=== PATIENT | male | born 1940 | race Caucasian/White ===

== ENCOUNTER 2020-08-27 16:57 | Outpatient (CLI) | payer MEDICARE, OTHER, SELFPAY | END 2020-08-27 16:58 | disposition home or self-care (01) | LOC: ANHCOVIDVC 16:57 | PROVIDERS: PCP Internal Medicine | DX: Z23 Encounter for immunization (principal) | CPT/HCPCS: 0001A; 91300 ==

== ENCOUNTER 2020-09-17 16:55 | Outpatient (CLI) | payer MEDICARE, OTHER, SELFPAY | END 2020-09-17 16:56 | disposition home or self-care (01) | LOC: ANHCOVIDVC 16:55 | PROVIDERS: PCP Internal Medicine | DX: Z23 Encounter for immunization (principal) | CPT/HCPCS: 0002A; 91300 ==

== ENCOUNTER 2023-01-24 11:16 | Outpatient (NON) | payer MEDICARE, SELFPAY ==
[2023-01-24 11:54] LABS: IFOB Positive Control Positive; Immunochemical Fecal Occult Bl Positive (N)
== END 2023-01-24 11:17 | disposition home or self-care (01) ==
LOC: ANHLAB 11:16
PROVIDERS: PCP Internal Medicine; Visit Provider Internal Medicine
DX: D64.9 Anemia, unspecified (principal)
CPT/HCPCS: 82274

== ENCOUNTER 2024-10-28 12:01 | Emergency (ER) | payer MEDICARE, SELFPAY ==
--- NOTE | ~2024-10-28 | XR_ITS ---
XR foot LT min 3V Ordering provider: Brigette Delgado MD History: . PAIN, REDNESS SWELLING X 1 WEEK, NKI . Comparison: None. FINDINGS: BONES: No acute fracture or dislocation. JOINT SPACES: Narrowing of the proximal and distal interphalangeal joints. Narrowing of the first met atarsophalangeal joint. No tarsal coalition. SOFT TISSUES: Normal. IMPRESSION: No acute osseous abnormality left foot. Polyarticular osteoarthritic changes. Reviewed, dictated and finalized at location A.
--- OUTSIDE RECORDS SUMMARY | 2024-10-28 12:03 | XMS_ITS | Clinical Summary ---
Author Organization [facility] Work[facility] Address [address] 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 This disclosure is being madepursuant to the Care Everywhere program and may not contain all information available regarding this patient. Last updated 18.[facility] Allergies Active Allergy Reactions Criticality Noted Date Comments Morphine Unknown 04/09/2020 Medications * Be aware that medications may not be up to date on this document. Alwaysverify current medications with the patient. aspirin EC (ECOTRIN) 81 MG tablet Take 81 mg by mouth daily. Active naproxen sodium (ALEVE) 220 MG tablet Take 220 mg by mouth 2 times daily. Active vitamin E (TOCOPHERYL) 1000 UNIT capsule Take 1 Cap by mouth daily. Active OMEGA-3 FISH OIL PO Take 4000 mg by mouth daily. Active multivitamin daily (THERAGRAN) tablet Take 1 Tab by mouth daily with food. Active Vitamin C 1000 MG TABS Take 1000 mg by mouth daily. Active Garlic 1000 MG CAPS Take by mouth daily. Active GLUCOSAMINE-CHO NDROITIN PO Take by mouth. Takes 3000mgof glucosamine and chrondroitin 2400 daily Active oxycodone-aceta minophen (PERCOCET) 5-325 MG tablet Take 1-2 Tabs by mouth every 4 hours as needed for Pain. 30 0 0 Active cyclobenzaprine (FLEXERIL) 10 MG tablet Take 1 Tab by mouth 3 times daily as needed for Muscle Spasms. 42 0 0 Active Futuro Soft Cervical Collar MISC Use. Patient to wean off soft collar after one month 1 0 0 Active Immunizations Immunization Administration Dates Next Due INFLUENZA VACCINE 03/09/2009 INFLUENZA VACCINE, HIGH-DOSE , QUADR. 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 Gender Identity Not on file Sexual Orientation Not on file Last Filed Vital Signs Vital Sign Reading Time Taken Comments Blood Pressure 106/67 11/21/2009 7:06 AM CDT Pulse 65 11/21/2009 7:06 AM CDT Temperature 36.9 C (98.4 F) 11/21/2009 7:06 AM CDT Respiratory Rate 18 11/21/2009 7:06 AM CDT Oxygen Saturation 94% 11/21/2009 7:06 AM CDT Inhaled Oxygen Concentration - - Weight 91.6 kg (202 lb 0.6 oz) 11/20/2009 10:29 AM CDT Height 177.8 cm (5' 10 ) 11/19/2009 3:10 PM CDT Body Mass Index 28.99 11/19/2009 3:10 PM CDT Plan of Treatment Health Maintenance Due Date Last Done Comments DTAP/TDAP/TD VACCINES (1 - Tdap) 1957 PNEUMOCOCCAL VACCINE 50+ (1 of 1 - PCV) 02/09/1988 ZOSTER VACCINE (1 of 2) 02/09/1988 Respiratory Syncytial Virus (RSV) Vaccine Pt: or over 60 yrs (1 - 1-dose 75+ series) 2013 COVID-19 VACCINE ( - 2023-2 5 season) 2024 DEPRESSION SCREENING 06/19/2024 INFLUENZA VACCINE (Season Ended) 2025 04/09/2020, 03/09/2009 HEPATITIS B VACCINE Aged Out No longe r eligible based on patient's age to complete this topic HIB VACCINE Aged Out No longer eligi ble based on patient's age to complete this topic HPV VACCINE Aged Out No longer eligi ble based on patient's age to complete this topic MENINGOCOCCAL (Group B) VACCINE SHARED DECISION-MAKING Aged Out No longer eligible based on patient's age to complete this topic MENINGOCOCCAL GROUPS A/C/Y/W VACCINE Aged Out No longer eligible b ased on patient's age to complete this topic Insurance MEDICARE [facility] [address] Advance Directives * Full Code (Latest Code Status on File) Date Activated Date Inactivated Comments 11/20/2009 7:05 PM 11/22/2009 3:36 AM Care Teams Fish Hatchery Manager Relationship Specialty Start Date End Date Aly Rock MD [address] [place] [id number] [facility] - General 11/20/09
--- OUTSIDE RECORDS SUMMARY | 2024-10-28 12:03 | XMS_ITS | CONTINUITY OF CARE DOCUMENT ---
Author Name gilbert hunt Address Unknown Organization [facility] Address [address] [place] [address] Phone [phone] Care Team Providers Care Pedorthist Name Role Phone Hayley Mims MD Unavailable CHELY VELA, ADONAY Unavailable CHELY VELA ADONAY Unavailable PROBLEMS Condition Status Date Provider Notes Other symptoms involving cardiovascular system completed - Hayley Mims MD Myocardial Infarction active ? Aries Mims MD (History of) CAD active Hayley gaines MD AMI inferior wall active Hayley Mims MD GERD active Hayley gaines MD HTN essential active Hayley martinez MD Hypercholesterolemia active Hayley Mims MD Dyspnea on exertion active Hayley Mims MD Shortness of breath active Hayley Mims MD SNORING completed - Hayley Mims MD Sleep apnea, mild active Hayley Mims MD Aortic regurgitation, mild active Naseem Mims MD Mitral regurgitation, mild active Naseem Mims MD COPD active Hayley gaines MD ENCOUNTERS Date Type Provider Location Encounter Diag nosis - In-person encounter Office Visit Hayley Mims MD [facility] COPD - In-person encounter Office Visit Hayley Mims MD [facility] - In-person encounter Office Visit Hayley Mims MD [facility] - In-person encounter Office Visit Hayley Mims MD [facility] Other symptoms involving cardiovascular systemSNORINGSleep apnea, mildAortic regurgitation, mildMitral regurgitation, mild - In-person encounter Office Visit Hayley Mims MD [facility] - In-person encounter Office Visit Hayley Mims MD [facility] - In-person encounter Office Visit Hayley Mims MD [facility] - In-person encounter Office Visit Hayley Mims MD [facility] - In-person encounter Office Visit Hayley Mims MD [facility] Dyspnea on exertionShortness of breath - In-person encounter Office Visit Hayley Mims MD [facility] Myocardial InfarctionCADAMI inferior wallGERDHTN essentialHypercholesterolemia VITAL SIGNS Date Observation Value Provider Body Mass Index (Ratio) 27.55 kg/m2 Batsheva Mims MD pulse rate 62 /min Florecita Wray respiratory rate E&M 20 /min Florecita Wray blood pressure, diastolic 58 mm[Hg] Mac Wray blood pressure, systolic 117 mm[Hg] She oliverio Wray oxygen saturation, oximetry 95 % Florecita Wray blood pressure, cuff size regular Mac Wray weight E&M 192 [lb_av] Florecita Wray height E&M 70 [in_i] Florecita Wray Body Mass Index (Ratio) 28.55 kg/m2 Batsheva Mims MD blood pressure, diastolic 60 mm[Hg] Li nkLogic blood pressure, systolic 140 mm[Hg] Letitia kLogic blood pressure, cuff size regular Cy ntrommel Bro blood pressure, diastolic 60 mm[Hg] Cy nthia Bro blood pressure, systolic 140 mm[Hg] Marilu peeweea Bro oxygen saturation, oximetry 97 % Martina Bro respiratory rate E&M 16 /min Martina Bro pulse rate 69 /min Martina Campbel l weight E&M 199 [lb_av] Martina Campbel l height E&M 70 [in_i] Martina Campbel l pulse rate 70 /min Hayley gaines MD blood pressure, diastolic 63 mm[Hg] Sa shaun Mims MD blood pressure, systolic 117 mm[Hg] Nabil Mims MD Body Mass Index (Ratio) 29.84 kg/m2 Batsheva Mims MD blood pressure, cuff size regular Cy justa Bro blood pressure, diastolic 60 mm[Hg] Cy ntsria Bro blood pressure, systolic 116 mm[Hg] Marilu peeweeliana Bro oxygen saturation, oximetry 95 % Martina Bro respiratory rate E&M 16 /min Martina Bro pulse rate 61 /min Martina Campbel l weight E&M 208 [lb_av] Martina Campbel l height E&M 70 [in_i] Martina Campbel l Body Mass Index (Ratio) 30.13 kg/m2 Oscar Plurad blood pressure, cuff size regular Cy nthia Bro blood pressure, diastolic 64 mm[Hg] Cy nthia Bro blood pressure, systolic 110 mm[Hg] Marilu Bro oxygen saturation, oximetry 95 % Martina Bro respiratory rate E&M 16 /min Martina Bro pulse rate 89 /min Martina avery weight E&M 210 [lb_av] Martina avery height E&M 70 [in_i] Martina David l Body Mass Index (Ratio) 29.70 kg/m2 Oscar Plurad blood pressure, diastolic 60 mm[Hg] Clifford lyle Massey blood pressure, systolic 110 mm[Hg] Emilie martinez Massey oxygen saturation, oximetry 98 % [facility] E&[facility] 16 /min [facility] rate 85 /min [facility]&M 207 [lb_av] [facility] E&M 70 [in_i] Justin Massey Body Mass Index (Ratio) 30.13 kg/m2 Btasheva Mims MD blood pressure, cuff size regular Ke rri Orennenfasa blood pressure, diastolic 70 mm[Hg] Ke rri Orenneandrea blood pressure, systolic 116 mm[Hg] Caesar Witt oxygen saturation, oximetry 96 % Scarlett Witt respiratory rate E&M 20 /min Scarlett marrero pulse rate 72 /min Scarlett Grueneangel luis lder weight E&M 210 [lb_av] Scarlett Orennenfe lder height E&M 70 [in_i] Scarlett Gruenenfe lder Body Mass Index (Ratio) 29.55 kg/m2 Batsheva Mims MD blood pressure, cuff size regular Ke rri Gruenenfeldmarly blood pressure, diastolic 90 mm[Hg] Sriram wray Halvitorerynmarly blood pressure, systolic 122 mm[Hg] Caesar Haywarderynmarly oxygen saturation, oximetry 96 % Scarlett Witt respiratory rate E&M 18 /min Scarlett watkinseldmarly pulse rate 63 /min Scarlett Rodriguez lder weight E&M 206 [lb_av] Scarlett Rodriguez lder height E&M 70 [in_i] Scarlett Rodriguez er Body Mass Index (Ratio) 29.10 kg/m2 Batsheva Mims MD blood pressure, resting Yes Jenna Dorman blood pressure, diastolic 63 mm[Hg] Avel Dorman blood pressure, systolic 118 mm[Hg] Dorothy Dorman oxygen saturation, oximetry 93 % Bernard Dorman respiratory rate E&M 20 /min Leobardo Dorman pulse rate 77 /min Bernard cintron weight E&M 202.8 [lb_av] Bernard jonas height E&M 70 [in_i] Bernard cintron Body Mass Index (Ratio) 29.50 kg/m2 Batsheva Mims MD blood pressure, diastolic 68 mm[Hg] Avel Dorman blood pressure, systolic 117 mm[Hg] Dorothy Dorman oxygen saturation, oximetry 95 % Bernard Dorman respiratory rate E&M 18 /min Leobardo Dorman pulse rate 68 /min Bernard cintron weight E&M 205.6 [lb_av] Bernard jonas height E&M 70 [in_i] Bernard cintron ALLERGIES Allergy Name Onset Date Reaction Criticality Status TAPE Low Criticality active MORPHINE Low Criticality active RESULTS Date Observation Value Provider Reference Range Interpretation Location very low density lipoproteins 17.8 mg/dL [facility] 5.0 - 40.0 LDL/HDL (low-density lipoprotein/high-den sity lipoprotein) ratio 1.9 RATIO [facility] - lipoprotein, beta, serum, point, quantitative, calculated 67.2 (?) [facility] 0.0 - 100.0 HDL cholesterol, serum 36.0 mg/dL [facility] 35.0 - 55.0 cholesterol, serum 121.0 mg/dL [facility] 0.0 - 200.0 triglyceride, serum, fasting 89.0 mg/dL [facility] 0.0 - 150.0 albumin/globulin ratio, serum 1.5 g/dL [facility] 1.1 - 2.5 globulin, serum 2.8 [facility] 2.3 - 3.8 albumin, serum 4.1 g/dL [facility] 3.5 - 5.2 aspartate aminotransferase (SGOT), serum 37.0 1/L [facility] 0.0 - 40.0 alkaline phosphatase, serum 104.0 1/L [facility] 40.0 - 130.0 alanine aminotransferase (SGPT), serum 28.0 1/L [facility] 0.0 - 41.0 protein, total, serum 6.9 g/dL [facility] 6.6 - 8.7 bilirubin, serum, total 0.5 mg/dL [facility] 0.0 - 1.2 HISTORY OF MEDICATION USE Medication Status Instructions Dates Provider Indications Com ments enalapril maleate 2.5 mg tablet active Take 1 tablet by mouth twice a day Scarlett Witt atorvastatin 40 mg tablet active Take 1 tablet by mouth at bedtime Scarlett Witt metoprolol tartrate 25 mg tablet active Take 1/2 tablet by mouth twice a day Scarlett Witt folic acid 1 mg tablet active Take 1 tablet by mouth once a day T Scarlett Witt Tylenol Extra Strength unspecified unspecified active Florecita Wray clopidogrel 75 mg tablet active TAKE 1 TABLET BY MOUTH EVERY DAY Pat Hansoneula enalapril maleate 2.5 mg tablet completed TAKE 1 TABLET BY MOUTH TWICE DAILY - Scarlett Witt atorvastatin 40 mg tablet completed TAKE 1 TABLET BY MOUTH AT BEDTIME - Scarlett Witt metoprolol tartrate 25 mg tablet completed TAKE 1/2 TABLET BY MOUTH TWICE DAILY - Scarlett Witt folic acid 1 mg tablet completed TAKE 1 TABLET BY MOUTH EVERY DAY - Scarlett Witt Breo Ellipta 100-25 mcg/dose blister with device active Take as needed Martina Bro cholecalciferol (vitamin D3) 25 mcg (1,000 unit) tablet active Take 1 tablet once a day Martina Bro tramadol 50 mg tablet active Take 1 tablet every night Martina Bro folic acid 1 mg tablet completed Take 1 tablet by mouth once a day - Hank Moreno cyanocobalamin (vitamin B-12) 1,000 mcg tablet active Take 1 tablet once a day Martina Bro KEFLEX 750 MG ORAL CAPSULE completed 3 tabs daily for 10 days - Martina Bro BENZONATATE 100 MG CAPS active Take 1 every eight hours as needed Scarlett Witt HYDROXYZINE HCL 25 MG ORAL TABLET completed take 1 pill in the am and 2 in the pm - Scarlett Witt METHOTREXATE 2.5 MG ORAL TABLET completed 10 tabs once a week - Martina Bro folic acid 1 mg tablet completed Take 1 tablet by mouth once a day - Xenia Shayer atorvastatin 40 mg tablet completed Take 1 tablet by mouth every night - Kayla Saravia enalapril maleate 2.5 mg tablet completed Take 1 tablet by mouth twice a day as directed - Ryan Chandler RN aspirin 325 mg tablet active 1 tablet once a day Hayley Mims MD metoprolol tartrate 25 mg tablet completed Take 0.5 tablet by mouth twice a day - Xenia Tristian clopidogrel 75 mg tablet completed Take 1 tablet by mouth once a day - Silva Dunn SOCIAL HISTORY Date Observation Value Provider social history reviewed E&M revi ewed - no changes required Hayley Mims MD social history E&M S moking History: Doroteo florentino is a former smoker. Hayley Mims MD social history reviewed E&M revi ewed - no changes required Hayley Mims MD seatbelt usage 100 % Martina perez smoking, year quit 1971 Martina mao cigarette use yes Martina hdz smoking status Former smoker Martina kong seatbelt usage 100 % Hayley vazquez MD smoking, year quit 1972 Hayley Mims MD cigarette use yes Hayley martinez MD smoking status Former smoker Hayley palomo MD social history E&M S moking History: Doroteo florentino is a former smoker. Hayley Mims MD social history reviewed E&M revi ewed - no changes required Hayley Mims MD social history E&M S moking History: Doroteo florentino is a former smoker. Hayley Mims MD social history reviewed E&M revi ewed - no changes required Hayley Mims MD seatbelt usage 100 % Martina Sarah ell smoking, year quit 1972 Martina rIene daylin cigarette use yes Martina Meeta ll smoking status Former smoker Martina Wood kong social history reviewed E&M revi ewed - no changes required Hayley Mims MD social history E&M S moking History: Doroteo florentino is a former smoker. Hayley Mims MD seatbelt usage 100 % Martina Sarah ell smoking, year quit 1972 Martina Irene daylin cigarette use yes Martina Meeta ll smoking status Former smoker Martina Wood kong seatbelt usage 100 % Hortensia Ayersолег van smoking, year quit 1972 Hortensia Leodan voander smoking status Former smoker Hortensia Ayers nder cigarette use yes Hortensia Ayersmaria r er social history reviewed E&M revi ewed - no changes required Hayley Mims MD social history E&M S moking History: Doroteo florentino is a former smoker. Hayley Mims MD smoking, year quit 1972 Justin I ngram cigarette use yes Justin Massey smoking status Former smoker [place] [facility] am social history E&M S moking History: Doroteo florentino is a former smoker. Hayley Mims MD social history reviewed E&M revi ewed - no changes required Hayley Mims MD smoking, year quit 1972 Scarlett Foreman enenfelder cigarette use yes Scarlett Andersonnf elder smoking status Former smoker Scarlett Hongshekhar nfelder social history reviewed E&M revi ewed - no changes required Hayley Mims MD social history E&M S moking History: Doroteo florentino is a former smoker. Hayley Mims MD smoking, year quit 1972 Scarlett Foreman engifty cigarette use yes Scarlett Andersonnf elder smoking status Former smoker Scarlett Anderson nfelder number of grandchildren Hayley Mims MD social history E&M S moking History: Doroteo florentino is a former smoker. Hayley Mims MD social history reviewed E&M revi ewed - no changes required Hayley Mims MD smoking, year quit 1972 Bernard Dorman cigarette use yes Bernard jonas smoking status Former smoker Bernard Farris social history E&M S moking History: Doroteo florentino is a former smoker. Hayley Mims MD social history reviewed E&M revi ewed - no changes required Hayley Mims MD smoking, year quit 1972 Bernard Dorman cigarette use yes Bernard jonas smoking status Former smoker Bernard Farris FUNCTIONAL STATUS Date Observation Value Provider HRA, CV Assess/Plan, Angina (inactive) Management Plan continue current therapy Hayley Mims MD HRA, CV Assess/Plan, Angina (inactive) Management Plan continue current therapy Hayley Mims MD HRA, CV Assess/Plan, Angina (inactive) Management Plan continue current therapy Hayley Mims MD HRA, CV Assess/Plan, Angina (inactive) Management Plan continue current therapy Hayley Mims MD HRA, CV Assess/Plan, Angina (inactive) Management Plan continue current therapy Hayley Mims MD HRA, CV Assess/Plan, Angina (inactive) Management Plan continue current therapy Hayley Mims MD HRA, CV Assess/Plan, Angina (inactive) Management Plan continue current therapy Hayley Mims MD HRA, CV Assess/Plan, Angina (inactive) Management Plan continue current therapy Hayley Mims MD HRA, CV Assess/Plan, Angina (inactive) Management Plan continue current therapy Hayley Mims MD FAMILY HISTORY Family Member Condition Full Brother Family History of Di abetes: Mother Family History of Di abetes: Full Sister Family History of Di abetes: INSURANCE PROVIDERS Payer name Policy type / Coverage type Christie red constitution party ID ATA CORTES O HMO [id number] ADVANCE DIRECTIVES Name Date DISCUSSED - NO DECISION MADE TREATMENT PLAN Date Name Performer [id number],S,Baseline SOB. Hayley Mims MD [id number],S, Hayley palomo MD [id number],C, H is updated medication list for this problem includes: Atorvastatin 40 Mg Tablet (Atorvastatin) ..... Take 1 tablet by mouth at bedtime Hayley Mims MD [id number],C,C HOL: 121.0 (07/28/2016) HDL: 36.0 (07/28/2016) T.0 (07/28/2016) His updated medication list for this problem includes: Enalapril Maleate 2.5 Mg Tablet (Enalapril maleate) ..... Take 1 tablet by mouth twice daily Metoprolol Tartrate 25 Mg Tablet (Metoprolol tartrate) ..... Take 1/2 tablet by mouth twice daily Clopidogrel 75 Mg Tablet (Clopidogrel) ..... Take 1 tablet by mouth every day Aspirin 325 Mg Tablet (Aspirin) ..... 1 tablet once a day Hayley Mims MD [id number],C,N eeds to get echo to evaluate, last one was in 2019 Hayley Mims MD [id number],C,N eeds to get echo to evaluate, last one was in 2019 Hayley Mims MD [id number],C, S /P stenting of the RCA and LAD distributions. NERI on aspririn/plavix stress test 10/24/18 Naseem lemus 1 . Normal myocardial perfusion imaging after vasodilator stress with Regadenoson. 2 . Normal left ventricular systolic function with a calculated ejection fraction of 73%. 3 . There is a fixed defect involving the inferior wall most consistent with diaphragmatic attenuation. Hayley Mims MD [id number],S, R emains on ASA/Plavix for NERI to the LAD. Summary 1 . Normal myocardial perfusion imaging after vasodilator stress with Regadenoson. 2 . Normal left ventricular systolic function with a calculated ejection fraction of 73%. 3 . There is a fixed defect involving the inferior wall most consistent with diaphragmatic attenuation. . ...................................................... ............Hayley Mims MD October 24, 2018 5:08 PM Hayley Mims MD [id number],C, H is updated medication list for this problem includes: Enalapril Maleate 2.5 Mg Tablet (Enalapril maleate) ..... Take 1 tablet by mouth twice a day as directed Aspirin 325 Mg Tablet (Aspirin) ..... 1 tablet once a day Metoprolol Tartrate 25 Mg Tablet (Metoprolol tartrate) ..... Take 1/2 tablet by mouth twice daily BP today: 140/60 P rior BP: 117/63 (11/29/2019) Labs Reviewed: C hol: 121.0 (07/28/2016) HDL: 36.0 (07/28/2016) T.0 (07/28/2016) Hayley Mims MD [id number],C,Needs echo. S melissa Mims MD [id number],C, H is updated medication list for this problem includes: Enalapril Maleate 2.5 Mg Tablet (Enalapril maleate) ..... Take 1 tablet by mouth twice a day as directed Aspirin 325 Mg Tablet (Aspirin) ..... 1 tablet once a day Metoprolol Tartrate 25 Mg Tablet (Metoprolol tartrate) ..... Take 1/2 tablet by mouth twice daily Hayley Mims MD Cardiology:Baseline SOB. Hayley Mims MD Cardiology Hayley Mims MD Cardiology: H is updated medication list for this problem includes: Atorvastatin 40 Mg Tablet (Atorvastatin) ..... Take 1 tablet by mouth at bedtime Hayley Mims MD Cardiology:CHOL: 121 .0 (07/28/2016) HDL: 36.0 (07/28/2016) T.0 (07/28/2016) His updated medication list for this problem includes: Enalapril Maleate 2.5 Mg Tablet (Enalapril maleate) ..... Take 1 tablet by mouth twice daily Metoprolol Tartrate 25 Mg Tablet (Metoprolol tartrate) ..... Take 1/2 tablet by mouth twice daily Clopidogrel 75 Mg Tablet (Clopidogrel) ..... Take 1 tablet by mouth every day Aspirin 325 Mg Tablet (Aspirin) ..... 1 tablet once a day Hayley Mims MD Cardiology:Needs to get echo to evaluate, last one was in 2019 Hayley Mims MD Cardiology:Needs to get echo to evaluate, last one was in 2019 Hayley Mims MD Cardiology follow ju p : S /P stenting of the RCA and LAD distributions. NERI on aspririn/plavix stress test 10/24/18 S ummary 1 . Normal myocardial perfusion imaging after vasodilator stress with Regadenoson. 2 . Normal left ventricular systolic function with a calculated ejection fraction of 73%. 3 . There is a fixed defect involving the inferior wall most consistent with diaphragmatic attenuation. Hayley Mims MD Cardiology follow ju p : R emains on ASA/Plavix for NERI to the LAD. Summary 1 . Normal myocardial perfusion imaging after vasodilator stress with Regadenoson. 2 . Normal left ventricular systolic function with a calculated ejection fraction of 73%. 3 . There is a fixed defect involving the inferior wall most consistent with diaphragmatic attenuation. . ...................................................... ............Hayley Mims MD October 24, 2018 5:08 PM Hayley Mims MD Cardiology follow ju p : H is updated medication list for this problem includes: Enalapril Maleate 2.5 Mg Tablet (Enalapril maleate) ..... Take 1 tablet by mouth twice a day as directed Aspirin 325 Mg Tablet (Aspirin) ..... 1 tablet once a day Metoprolol Tartrate 25 Mg Tablet (Metoprolol tartrate) ..... Take 1/2 tablet by mouth twice daily BP today: 140/60 P rior BP: 117/63 (11/29/2019) Labs Reviewed: C hol: 121.0 (07/28/2016) HDL: 36.0 (07/28/2016) T.0 (07/28/2016) Hayley Mims MD Cardiology follow jup :Needs ech o. Hayley Mims MD Cardiology follow ju p : H is updated medication list for this problem includes: Enalapril Maleate 2.5 Mg Tablet (Enalapril maleate) ..... Take 1 tablet by mouth twice a day as directed Aspirin 325 Mg Tablet (Aspirin) ..... 1 tablet once a day Metoprolol Tartrate 25 Mg Tablet (Metoprolol tartrate) ..... Take 1/2 tablet by mouth twice daily Hayley Mims MD TeleHealth: H is updated medication list for this problem includes: Enalapril 2.5mg (Enalapril maleate) ..... Take 1 tablet by mouth twice daily Aspirin 325 Mg Oral Tablet (Aspirin) ..... One tab daily Metoprol Tar 25mg (Metoprolol tartrate) ..... Take 1/2 tablet by mouth twice daily Plavix 75 Mg Oral Tablet (Clopidogrel bisulfate) ..... One tab. daily Hayley Mims MD TeleHealth:Monalisa peres. H is updated medication list for this problem includes: Enalapril 2.5mg (Enalapril maleate) ..... Take 1 tablet by mouth twice daily Aspirin 325 Mg Oral Tablet (Aspirin) ..... One tab daily Metoprol Tar 25mg (Metoprolol tartrate) ..... Take 1/2 tablet by mouth twice daily Hayley Mims MD TeleHealth:Recheck echo Hayley Mims MD TeleHealth:Recheck echo Hayley Mims MD Cardiology follow up :Echo Conclusions: 1 . Normal LV systolic function with EF 65%. 2 . Stage 1 diastolic dysfunction. 3 . Mild aortic, mitral and tricuspid regurgitation. 4 . Normal estimated PA systolic pressure. 5 . Dilated aortic root at 4.2 cm. Hayley Mims MD Cardiology follow up :Echo Conclusions 04/2018: 1 . Normal LV systolic function with EF 65%. 2 . Stage 1 diastolic dysfunction. 3 . Mild aortic, mitral and tricuspid regurgitation. 4 . Normal estimated PA systolic pressure. 5 . Dilated aortic root at 4.2 cm. Hayley Mims MD Cardiology follow up : h as some component of COPD. His updated medication list for this problem includes: Enalapril Maleate 2.5 Mg Oral Tablet (Enalapril maleate) ..... One tab twice daily Aspirin 325 Mg Oral Tablet (Aspirin) ..... One tab daily Metoprolol Tartrate 25 Mg Oral Tablet (Metoprolol tartrate) ..... 1/2 tab. twice daily Hayley Mims MD Cardiology follow up : S /P stenting of the RCA and LAD distributions. NERI on aspririn/plavix stress test 10/24/18 Naseem lemus 1 . Normal myocardial perfusion imaging after vasodilator stress with Regadenoson. 2 . Normal left ventricular systolic function with a calculated ejection fraction of 73%. 3 . There is a fixed defect involving the inferior wall most consistent with diaphragmatic attenuation. Hayley Mims MD Cardiology follow up : B P today: 116/60 P rior BP: 110/64 (10/03/2018) His updated medication list for this problem includes: Enalapril Maleate 2.5 Mg Oral Tablet (Enalapril maleate) ..... One tab twice daily Aspirin 325 Mg Oral Tablet (Aspirin) ..... One tab daily Metoprolol Tartrate 25 Mg Oral Tablet (Metoprolol tartrate) ..... 1/2 tab. twice daily Hayley Mims MD Cardiology follow up : l ipids are favoraable according to wellness testing done with PCP His updated medication list for this problem includes: Atorvastatin Calcium 40 Mg Oral Tablet (Atorvastatin calcium) ..... One tab at Hayley Mims MD Cardiology folllow u p :Will order stress test. O rders: Naseem Rodrigues ([id number]) His updated medication list for this problem includes: Enalapril Maleate 2.5 Mg Oral Tablet (Enalapril maleate) ..... One tab twice daily Aspirin 325 Mg Oral Tablet (Aspirin) ..... One tab daily Metoprolol Tartrate 25 Mg Oral Tablet (Metoprolol tartrate) ..... 1/2 tab. twice daily Hayley Mims MD Cardiology folllow u p :CHOL: 121.0 (07/28/2016) HDL: 36.0 (07/28/2016) T.0 (07/28/2016) Hayley Mims MD Cardiology folllow u p : H is updated medication list for this problem includes: Atorvastatin Calcium 40 Mg Oral Tablet (Atorvastatin calcium) ..... One tab at Hayley Mims MD Cardiology folllow up Hayley Mims MD Cardiology folllow u p : B P today: 110/64 P rior BP: 110/60 (04/04/2018) Labs Reviewed: C hol: 121.0 (07/28/2016) HDL: 36.0 (07/28/2016) T.0 (07/28/2016) His updated medication list for this problem includes: Enalapril Maleate 2.5 Mg Oral Tablet (Enalapril maleate) ..... One tab twice daily Aspirin 325 Mg Oral Tablet (Aspirin) ..... One tab daily Metoprolol Tartrate 25 Mg Oral Tablet (Metoprolol tartrate) ..... 1/2 tab. twice daily Hayley Mims MD Cardiology folllow u p :Mild ERROL. Not necessary to have CPAP. Hayley Mims MD Cardiology folllow u p : R emains on ASA/Plavix for NERI to the LAD. Hayley Mims MD Cardiology: H is updated medication list for this problem includes: Enalapril Maleate 2.5 Mg Oral Tablet (Enalapril maleate) ..... One tab twice daily Aspirin 325 Mg Oral Tablet (Aspirin) ..... One tab daily Metoprolol Tartrate 25 Mg Oral Tablet (Metoprolol tartrate) ..... 1/2 tab. twice daily BP today: 110/60 P rior BP: 116/70 (09/22/2017) Labs Reviewed: C hol: 121.0 (07/28/2016) HDL: 36.0 (07/28/2016) T.0 (07/28/2016) Hayley Mims MD Cardiology: R emains on ASA/Plavix for NERI to the LAD. Hayley Mims MD Cardiology: H is updated medication list for this problem includes: Atorvastatin Calcium 40 Mg Oral Tablet (Atorvastatin calcium) ..... One tab at hs Hayley Mims MD Cardiology:Will get home sleep s tudy. Hayley Mims MD Cardiology: 1 . Normal LV systolic function with EF 55%. 2 . Normal diastolic function. 3 . Mildly dilated aortic root (4.2 cm). 4 . Mild aortic, mitral and tricuspid regurgitation. 5 . Normal estimated PA systolic pressure. Recent stress January 2017 showed no ischemia. EF 62%. Hayley Mims MD Cardiology Follow up - pt needs refill:Controlled. Hayley Mims MD Cardiology Follow up - pt needs refill Hayley Mims MD Cardiology Follow up - pt needs refill: 1 . Normal LV systolic function with EF 55%. 2 . Normal diastolic function. 3 . Mildly dilated aortic root (4.2 cm). 4 . Mild aortic, mitral and tricuspid regurgitation. 5 . Normal estimated PA systolic pressure. Recent stress January 2017 showed no ischemia. EF 62%. Hyaley Mims MD Cardiology Follow up - pt needs refill:Had bloodwork done recently. Hopefully will get results. O n lipitor Hayley Mims MD Cardiology Follow up Hayley richardson MD Cardiology Follow up :DAPT 12 months will be over in May. No bleeding issues. Tolerating meds at present. H is updated medication list for this problem includes: Enalapril Maleate 2.5 Mg Oral Tabs (Enalapril maleate) ..... One tab twice daily Aspirin 325 Mg Tabs (Aspirin) ..... One tab daily Metoprolol Tartrate 25 Mg Tabs (Metoprolol tartrate) ..... 1/2 tab. twice daily Plavix 75 Mg Tabs (Clopidogrel bisulfate) ..... One tab. daily Hayley Mims MD Cardiology Follow up :1. Normal LV systolic function with EF 55%. 2 . Normal diastolic function. 3 . Mildly dilated aortic root (4.2 cm). 4 . Mild aortic, mitral and tricuspid regurgitation. 5 . Normal estimated PA systolic pressure. Hayley Mims MD Cardiology Follow up : H is updated medication list for this problem includes: Enalapril Maleate 2.5 Mg Oral Tabs (Enalapril maleate) ..... One tab twice daily Aspirin 325 Mg Tabs (Aspirin) ..... One tab daily Metoprolol Tartrate 25 Mg Tabs (Metoprolol tartrate) ..... 1/2 tab. twice daily Hayley Mims MD Cardiology Hayley Mims MD Cardiology:Remains on ASA/Plavix for NERI to the LAD. Hayley Mims MD Cardiology:Bends ove r and intermittently gets SOB. Concern for if there is any palpitations of arrhythmia. Has a hx of HTN. Will check Holter. 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 Noticed that he had fatigue and LIM afterwards. Temperatures have been in the high 90s in this area. Check stress. Hayley Mims MD Cardiology:On lipitor Hayley Mims MD Cardiology: H is updated medication list for this problem includes: Aspirin 325 Mg Tabs (Aspirin) ..... One tab daily Hayley Mims MD Cardiology:Recovered well, no ne w symptoms. Hayley Mims MD Cardiology:S/P stent ing of the RCA and LAD distributions. NERI on aspririn/plavix 12 months. Hayley Mims MD Date Name Complete Echo EKG Complete Echo Carotid Duplex Bilat eral Complete Echo Stress Regadenoson Complete Echo Sleep Study Home Holter Monitor 24 Hr STR - Adenosine HEPATIC FUNCTION JOHNS EL LIPID PANEL HEPATIC FUNCTION JOHNS LIPID PANEL Carotid Duplex Bilat eral Complete Echo HISTORY OF PROCEDURES Procedure Date Procedure Name Provider Procedure Notes S tatus EKG Hayley Mims MD completed EKG Hayley Mims MD completed Regadenoson, 4 units Hayley richardson MD completed Cardiolite, 2 units Hayley palomo MD completed SPECT Images Hayley Mims MD completed Stress EKG Glenn Cornejo MD completed EKG Hayley Mims MD completed EKG Hayley Mims MD completed EKG Hayley Mims MD completed EKG Hayley Mims MD completed SNOMED-CT: 494721133 [id number] Current Medications Documented Hayley Mims MD completed Stress EKG Juanjose Benson MD complete d Regadenoson, 4 units Hayley richardson MD completed Cardiolite, 2 units Hayley palomo MD completed SPECT Images Quinton Grubbs MD complet ed ZIO Holter Hookup Hayley martinez MD completed EKG Hayley Mims MD completed SNOMED-CT: [id number] Current Medications Documented Hayley Mims MD completed EKG Hayley Mims MD completed SNOMED-CT: 874462267 [id number] Current Medications Documented Hayley Mims MD completed
[2024-10-28 12:10] VITALS: BP 122/72; PULSE 60; RESP 16; TEMP 36.4; O2SAT 100
--- OUTSIDE RECORDS SUMMARY | 2024-10-28 13:38 | XMS_ITS | Clinical Summary ---
Author Organization [facility] [employer] Address [address] [place] [address] Care Team Providers Care Piercer Name Role Phone Aly Rock MD Primary Care Provider [phone] Source Comments [facility] [employer],non-owned Affiliates and Associated Physician Practices is amultiple site organization consisting of ambulatory clinics and hospital sitesin [place], [place], [place] and [place]. This disclosure is being madepursuant to the Care Everywhere program and may not contain all information available regarding this patient. Last updated 18.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
--- OUTSIDE RECORDS SUMMARY | 2024-10-28 13:38 | XMS_ITS | CONTINUITY OF CARE DOCUMENT ---
Author Name gilbert hunt Address Unknown Organization [facility] Address [address] [place] [address] Phone [phone] Care Team Providers Care Internet Sales Representative Name Role Phone Hayley Mims MD Unavailable [...] In-person encounter Office Visit Hayley Mims MD [facility] COPD - In-person encounter Office Visit Hayley Mims MD [facility] - In-person encounter Office Visit Hayley Mims MD [facility] - In-person encounter Office Visit Hayley Mims MD [facility] Other symptoms involving cardiovascular systemSNORINGSleep apnea, mildAortic regurgitation, mildMitral regurgitation, mild - In-person encounter Office Visit Hayley Mims MD [facility] - In-person encounter Office Visit Hayley Mims MD [facility] - In-person encounter Office Visit Hayley Mims MD [facility] - In-person encounter Office Visit Hayley Mims MD [facility] - In-person encounter Office Visit Hayley Mims MD [facility] Dyspnea on exertionShortness of breath - In-person encounter Office Visit Hayley Mims MD [facility] Myocardial InfarctionCADAMI inferior wallGERDHTN essentialHypercholesterolemia VITAL [...] martinez Massey oxygen saturation, oximetry 98 % [facility] respiratory rate E&M 16 /min [facility] pulse rate 85 /min [facility] weight E&M 207 [lb_av] [facility] height E&M 70 [in_i] Justin Massey Body Mass Index (Ratio) 30.13 kg/m2 Batsheva Mims MD blood pressure, cuff [...] yes Justin Massey smoking status Former smoker [place] [facility] am social history E&M S moking [...] Policy type / Coverage type Christie red green party ID ATA CORTES O HMO [id number] ADVANCE DIRECTIVES Name Date DISCUSSED - NO DECISION MADE TREATMENT PLAN Date Name Performer [id number],S,Baseline SOB. Hayley Mims MD [id number],S, Hayley palomo MD [id number],C, H is updated medication list for this problem includes: Atorvastatin 40 Mg Tablet (Atorvastatin) ..... Take 1 tablet by mouth at bedtime Hayley Mims MD [id number],C,C HOL: 121.0 (07/28/2016) HDL: 36.0 (07/28/2016) T.0 [...] tablet once a day Hayley Mims MD [id number],C,N eeds to get echo to evaluate, last one was in 2019 Hayley Mims MD [id number],C,N eeds to get echo to evaluate, last one was in 2019 Hayley Mims MD [id number],C, S /P stenting of the RCA and LAD distributions. NERI on aspririn/plavix stress test 10/24/18 Naseem lemus 1 . Normal myocardial perfusion imaging after vasodilator stress with Regadenoson. 2 . Normal left ventricular systolic function with a calculated ejection fraction of 73%. 3 . There is a fixed defect involving the inferior wall most consistent with diaphragmatic attenuation. Hayley Mims MD [id number],S, R emains on ASA/Plavix for NERI to [...] 24, 2018 5:08 PM Hayley Mims MD [id number],C, H is updated medication list for this [...] 36.0 (07/28/2016) T.0 (07/28/2016) Hayley Mims MD [id number],C,Needs echo. S melissa Mims MD [id number],C, H is updated medication list for this [...] order stress test. O rders: Naseem Rodrigues ([id number]) His updated medication list for this problem [...] Cardiology:Was marifer ng up sod for his judaism, for two hours. Noticed that he had [...] completed EKG Hayley Mims MD completed SNOMED-CT: [id number] [id number] Current Medications Documented Hayley Mims MD completed Stress EKG Juanjose Benson MD complete d Regadenoson, 4 units Hayley richardson MD completed Cardiolite, 2 units Hayley palomo MD completed SPECT Images Quinton Grubbs MD complet ed ZIO Holter Hookup Hayley martinez MD completed EKG Hayley Mims MD completed SNOMED-CT: [id number] 795375 Current Medications Documented Hayley Mims MD completed EKG Hayley Mims MD completed SNOMED-CT: [id number] 862478 Current Medications Documented Hayley Mims MD completed
--- OUTSIDE RECORDS SUMMARY | 2024-10-28 13:38 | XMS_ITS | Continuity of Care Document ---
Author Organization Located within [facility] Address [address] [place] [address] [address] [place] [address] Phone Care Team Providers Care Impregnator Name Role Phone Amando Alejo Unavailable Unavailable Procedures Procedure Date No Charge Glasses Check Eye Exam & Treatment Refraction Eye Exam & Treatment Refraction Advance Directives Directive Yes / No Effective Date File Name No Information Encounters Encounter Description Practice Location Reason(s) For Visit Diagnoses Date Provider Providers Copied on Encounter [facility], [address] [place] [address] [address], [place], [place], [id number], tel:[phone] [facility] No Information 4-201 0 Melo Goel. [facility] [facility], [place], [place], [facility], [place]. tel:[phone] [facility], [address] [place] [address] [address], [place], [place], [id number], [place] tel:[phone] [facility] No Information 4-201 0 Melo Goel. [address], [place], [address], [place]. tel:[phone] [facility], [address] [place] [address] [address], [place], [place], [id number], tel:[phone] SEC [facility] [place] No Information [phone] Melo [address]el. [address], [place], [address], [place]. tel:[phone] Family History Family Member Type Diagnosis Age At Onset No Information Payers Payer name Insurance type Covered alliance party ID Authoriza tion(s) No Information Social History Type Description Quantity Date Captured Comments Sex Male Smoking Status No Information Chief Complaint And Reason For Visit No Information Reason For Referral Reason For Referral No Information History Of Present Illness Encounter Date Complaint History Of Prese nt Illness No Information Functional Status Date Functional Assessmen t No Information Instructions Date Instruction Additional Infor mation No Information Assessments Type Assessment Date No Information Patient Care Teams Name Effective Dates (start - stop) Status Members No Information
--- NOTE | 2024-10-28 13:50 | ED_ITS ---
HPI - Extremity Problem General Chief complaint: Extremity Problem,Nontraumatic Stated complaint: foot pain Time Seen by Provider: 10/28/24 13:10 History of Present Illness HPI Narrative: 84-year-old male presenting with left foot pain. States that he has been doing a lot of yd work over the last few weeks and he has been having pretty persistent pain in his left foot especially around the ankle and heel. States that he has noticed a pink rash in the same area. No new injuries. No numbness or weakness. No fevers. Related Data Home Medications ?Medication ?Instructions ?Recorded ?Confirmed ?Last Taken ?Type albuterol sulfate 90 mcg/actuation 1 puff inhalation Q4H PRN 02/13/20 09/30/24 Unknown History aerosol inhaler (ProAir HFA) acetaminophen 650 mg 650 mg PO .QD 01/19/23 09/30/24 Unknown History tablet,extended release (Tylenol 8 Hour) mecobalamin (vitamin B12) 2,500 mcg PO 01/19/23 09/30/24 Unknown History mcg chewable tablet cholecalciferol (vitamin D3) 50 50 mcg PO DAILY 08/03/23 09/30/24 Unknown History mcg (2,000 unit) capsule atorvastatin 20 mg tablet (Lipitor) 20 mg PO DAILY 09/23/24 09/30/24 Unknown History Allergies Allergy/AdvReac Type Severity Reaction Status Date / Time adhesive tape Allergy Unknown Rash Verified 09/30/24 11:03 morphine Allergy Unknown Headache Verified 09/30/24 11:03 Review of Systems Review of Systems: All systems reviewed & are unremarkable except as noted in HPI and below PMFSH Past Medical History Medical History BMI 26.0-26.9,adult A-fib Hyperkalemia Iron deficiency anemia BMI 27.0-27.9,adult Encounter for routine adult health examination with abnormal findings Eczema Eczema Chest pain History of tobacco abuse Elevated glucose Cellulitis of right arm Cellulitis of left elbow Bronchitis History of COVID-19 Hearing loss BMI 28.0-28.9,adult Encounter for Medicare annual wellness exam Chronic pain BMI 29.0-29.9,adult Hypotension Encounter for routine adult health examination without abnormal findings 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 ASHD (arteriosclerotic heart disease) Psoriasis Social History Social History Smoking status: Former smoker Second hand tobacco smoke exposure: No Alcohol intake: never Substance use: never Substance use type: does not use Lack of Transportation: No Lack of Food: Never True Current Housing: I Have Housing Concerned About Future Housing: No Difficulty Paying Gas/Electric Bills: No Difficulty Paying for Meds: No Currently Unemployed: No Difficulty w/ Childcare or Family Care: No Living arrangements: with family Occupation/Education: retired Gender identity (if verbalized by the patient): Male Exam Narrative: GENERAL: Nontoxic, no acute distress, pleasant cooperative HEAD: Normocephalic, atraumatic. EYES: PERRLA and EOMI. ENT: Mucous membranes moist. NECK: Supple. CHEST: No respiratory distress. HEART: Regular rate and rhythm. Normal peripheral pulses. EXTREMITIES: Normal range of motion. +warmth and erythema of distal left leg around ankle w/ mild tenderness; mild tenderness over lateral malleolus, no deformities or bruising; 2+ DP pulses; no calf swelling SKIN: Warm, dry NEURO: No focal deficits. Alert and oriented x3. PSYCH: Normal mood and affect. Course Vital Signs Vital signs: Vital Signs Temperature 97.6 F 10/28/24 12:10 Pulse Rate 60 10/28/24 12:10 Respiratory Rate 16 10/28/24 12:10 Blood Pressure 122/72 10/28/24 12:10 Pulse Oximetry 100 10/28/24 12:10 Oxygen Delivery Room Air 10/28/24 12:10 Temperature 97.6 F 10/28/24 12:10 Pulse Rate 60 10/28/24 12:10 Respiratory Rate 16 10/28/24 12:10 Blood Pressure 122/72 10/28/24 12:10 Pulse Oximetry 100 10/28/24 12:10 Oxygen Delivery Room Air 10/28/24 12:10 MDM - Extremity (Nontraumatic) MDM Narrative Medical decision making narrative: 84-year-old male presenting with left foot and ankle pain. Vitals within normal limits. Exam remarkable for the above. X-ray shows polyarthritis but no acute abnormalities. Exam is concerning for cellulitis of his distal left leg. I am not concerned for a deeper infection. I do not suspect DVT at this time. Will start him on Keflex and discussed appropriate supportive care. Recommend close PCP follow-up. Appropriate return precautions given. Discharged in stable condition. Critical Care Time Critical Care Time Critical Care Time: No Discharge Plan Discharge Clinical Impression: Cellulitis of left lower leg Patient Disposition: Home Condition: Stable Instructions: Antibiotic Form, Cellulitis (ED) Additional Instructions: The x-rays today show arthritis and no broken bones. Please complete the antibiotics as prescribed for skin infection. You may use Tylenol for pain. Please follow-up closely with your PCP. If your symptoms worsen or other concerning symptoms arise, please return to the ER. Patient Language: Hungarian Prescriptions: New cephalexin 500 mg capsule 500 mg PO Q6H 7 Days Qty: 28 0RF No Action albuterol sulfate [ProAir HFA] 90 mcg/actuation HFA aerosol inhaler 1 puff INHALATION Q4H PRN acetaminophen [Tylenol 8 Hour] 650 mg tablet extended release 650 mg PO .QD mecobalamin (vitamin B12) 2,500 mcg tablet,chewable PO hydroxyzine HCl 25 mg tablet 25 mg PO QID PRN (Reason: itch) Qty: 30 0RF Dupixent Syringe 300 mg/2 mL syringe 300 mg SUB-Q ONCE Qty: 2 0RF triamcinolone acetonide 0.5 % cream 1 applic topical BID Qty: 16 0RF nystatin-triamcinolone 100,000-0.1 unit/g-% cream 1 applic TOPICAL BID Qty: 30 1RF nitroglycerin 0.4 mg tablet, sublingual 0.4 mg SUBLINGUAL Q5M PRN (Reason: chest pain) Qty: 25 1RF Rx Instructions: do not exceed 3 doses per episode cholecalciferol (vitamin D3) 50 mcg (2,000 unit) capsule 50 mcg PO DAILY folic acid 1 mg tablet 1 mg PO DAILY Qty: 60 1RF metoprolol tartrate 25 mg tablet 12.5 mg PO BID Qty: 90 1RF metformin 500 mg tablet See Rx Instructions .ROUTE .COMPLEX Qty: 180 1RF Dose Instruction: TAKE 1 TABLET BY MOUTH TWICE DAILY Rx Instructions: TAKE 1 TABLET BY MOUTH TWICE DAILY losartan 50 mg tablet 50 mg PO DAILY Qty: 90 1RF Rx Instructions: Please D/C the Enalapril. Thank you clopidogrel 75 mg tablet 75 mg PO DAILY Qty: 90 1RF tramadol 50 mg tablet 50 mg PO Q6H PRN (Reason: pain) Qty: 60 0RF atorvastatin [Lipitor] 20 mg tablet 20 mg PO DAILY Eliquis 5 mg tablet 5 mg PO BID Qty: 200 1RF Follow-up/Referrals: Aly Rock MD [Primary Care Provider] -
[2024-10-28 14:14] VITALS: BP 121/63; PULSE 85; RESP 17; O2SAT 95
== END 2024-10-28 14:18 | disposition home or self-care (01) ==
PROVIDERS: Emergency Provider Emergency Medicine; PCP Internal Medicine
DX: L03.116 Cellulitis of left lower limb (principal); I48.91 Unspecified atrial fibrillation; D64.9 Anemia, unspecified; Z87.891 Personal history of nicotine dependence
CPT/HCPCS: 73630; 99283

== ENCOUNTER 2025-01-28 08:31 | Outpatient (CLI) | payer MEDICARE, SELFPAY ==
--- OUTSIDE RECORDS SUMMARY | 2025-01-28 08:50 | XMS_ITS | Clinical Summary ---
Author Organization [facility] Address [address] [place] [address] Care Team Providers Care Facing Machine Operator Name Role Phone Aly Rock MD Primary Care Provider [phone] Source Comments [facility],non-owned Affiliates and Associated Physician Practices is amultiple site organization consisting of ambulatory clinics and hospital sitesin [place], [place], [place] and [place]. This disclosure is being madepursuant to the Care Everywhere program and may not contain all information available regarding this patient. 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 Gender Identity Not on file Sexual Orientation [...] 10:29 AM CDT Height 177.8 cm (5' 10) 11/19/2009 3:10 PM CDT Body Mass Index [...] season) 2024 DEPRESSION SCREENING 06/19/2024 INFLUENZA VACCINE (#1) 2025 0, 03/09/2009 HEPATITIS B VACCINE Aged Out No [...] age to complete this topic Insurance MEDICARE [place] [address] Advance Directives * Full Code (Latest Code Status on File) Date Activated Date Inactivated Comments 11/20/2009 7:05 PM 11/22/2009 3:36 AM Care Teams Facing Machine Operator Relationship Specialty Start Date End Date Aly Rock MD [address] [place] [address] [facility] - General 11/20/09
--- OUTSIDE RECORDS SUMMARY | 2025-01-28 08:50 | XMS_ITS | Continuity of Care Document ---
Author Organization [facility] Address [address] [place] [address] [address] [place] [address] Phone Care Team Providers Care Stars Analytical Lead Name Role Phone Amando Alejo Unavailable Unavailable Procedures Procedure Date No Charge Glasses Check Eye Exam & Treatment Refraction Eye Exam & Treatment Refraction Advance Directives Directive Yes / No Effective Date File Name No Information Encounters Encounter Description Practice Location Reason(s) For Visit Diagnoses Date Provider Providers Copied on Encounter [facility], [address] [place] [address] [address], [place], [place], [id number], tel:[phone] SEC [facility] No Information 4-201 0 Melo Goel. [facility] [address], [place], [place], [facility], [place]. tel:[phone] [facility], [address] [place] [address] [address], [place], [place], [id number], [place] tel:[phone] SEC [facility] No Information 4-201 0 [address]. [address] [facility] [address] [facility], [place], [address], [place]. tel:[phone] [facility], [address] [place] [address] [address], [place], [place], [id number], tel:[phone] SEC [facility] [place] No Information [phone] [address]. [address] [facility] [address] [facility] [address], [place], [address], [place]. tel:[phone] Family History Family Member Type Diagnosis Age At Onset No Information Payers Payer name Insurance type Covered democrat ID Authoriza tion(s) No Information Social History [...]
--- NOTE | 2025-01-28 09:09 | ECHO_ITS ---
Patient Info Name: Jim Cohen Age: 84 years : 1940 Gender: Male Ht: 70 in Wt: 178 lbs BSA: 2.01 m2 HR: 52 bpm BP: 170 / 80 mmHg Technical Quality: Good Exam Date: 01/28/2025 9:18 AM Patient Status: O Admit Date: 01/28/2025 Exam Type: CA echo doppler color flow Complete two-dimensional, color flow and Doppler transthoracic echocardiogram is performed. Cutting Machine Operator Helper: Lorenza Lee Attending Provider: Gregorio Johnson DO Summary 1. Complete two-dimensional, color flow and Doppler transthoracic echocardiogram is performed. 2. Left ventricular chamber dimension is normal. 3. Left ventricular systolic function is normal, estimated at 65-70. 4. The left ventricular diastolic function is grade III diastolic dysfunction. 5. E/e' 12 is mildly elevated. 6. Left atrial chamber dimension is moderately enlarged. 7. Right atrial chamber dimension is moderately enlarged. 8. There is mild aortic valve sclerosis. 9. There is moderate aortic valve regurgitation. 10. There is mild mitral valve regurgitation. 11. There is mild tricuspid valve regurgitation. 12. Moderate pulmonary hypertension, estimated pulmonary arterial systolic pressure is 62 mmHg. 13. The aortic root size at the sinus of Valsalva is borderline dilated at 4.1 cm. Left Ventricle E/e' 12 is mildly elevated. Left ventricular chamber dimension is normal. Left ventricular systolic function is normal, estimated at 65-70. The left ventricular diastolic function is grade III diastolic dysfunction. Right Ventricle Right ventricular chamber dimension is normal. Right ventricular systolic function is normal and with normal TAPSE 1.8 cm. Left Atria Left atrial chamber dimension is moderately enlarged. Right Atria Right atrial chamber dimension is moderately enlarged. Aortic Valve The aortic valve is trileaflet. There is mild aortic valve sclerosis. There is no aortic valve stenosis. There is moderate aortic valve regurgitation. Pulmonic Valve There is no pulmonic regurgitation. Mitral Valve There is no mitral valve stenosis. There is mild mitral valve regurgitation. Tricuspid Valve There is mild tricuspid valve regurgitation. Moderate pulmonary hypertension, estimated pulmonary arterial systolic pressure is 62 mmHg. Pericardium/Pleural There is no pericardial effusion. Inferior Vena Cava Normal inferior vena cava with >50% collapse upon inspiration consistent with normal right atrial pressure, 5 mmHg. Aorta The aortic root size at the sinus of Valsalva is borderline dilated at 4.1 cm. Left Ventricular Outflow Tract Name Value Normal LVOT 2D LVOT Diameter 2.0 cm LVOT Doppler LVOT Peak Velocity 96 cm/s LVOT Peak Gradient 4 mmHg LVOT Mean Gradient 2 mmHg LVOT VTI 31 cm LVOT Stroke Volume 96 ml LVOT CO 5.0 l/min LVOT CI 2.5 l/min/m2 Pulmonic Valve Name Value Normal RVOT Doppler RVOT Peak Velocity 63 cm/s RVOT Peak Gradient 2 mmHg PV Doppler PV Peak Velocity 78 cm/s PV Peak Gradient 2 mmHg Mitral Valve Name Value Normal MV Diastolic Function MV E Peak Velocity 94 cm/s MV A Peak Velocity 35 cm/s MV E/A 2.6 MV Decel Time (PW) 210 ms MV Annular TDI MV E/e' (Septal) 14.2 MV E/e' (Lateral) 10.6 MV E/e' (Average) 12.4 Tricuspid Valve Name Value Normal TV Regurgitation Doppler TR Peak Velocity 377 cm/s TR Peak Gradient 46 mmHg Estimated PAP/RSVP RA Pressure 5 mmHg <=5 PA Systolic Pressure 62 mmHg <36 RV Systolic Pressure 62 mmHg <36 Aortic Valve Name Value Normal AV Doppler AV Peak Velocity 115 cm/s AV Peak Gradient 5 mmHg AV Area (Cont Eq Rd) 2.6 cm2 AV DI (Rd) 0.84 AV Regurgitation 2D LVOT Area 3.1 cm2 Ventricles Name Value Normal LV Dimensions 2D/MM IVS Diastolic Thickness (2D) 1.0 cm 0.6-1.0 LVID Diastole (2D) 4.7 cm 4.2-5.8 LVIW Diastolic Thickness (2D) 0.9 cm 0.6-1.0 LVID Systole (2D) 2.9 cm 2.5-4.0 LVOT Diameter 2.0 cm LV Mass (2D Cubed) 153.64 g 88.00-224.00 LV Mass Index (2D Cubed) 77 g/m2 49-115 Relative Wall Thickness (2D) 0.38 <=0.42 LV Fractional Shortening/Ejection Fraction 2D/MM LV Fractional Shortening (2D) 38 % 25-43 LV EF (2D Teichholz) 68 % LV Diastolic Volume (4C MOD) 94 ml LV EF (4C MOD) 62 % LV Diastolic Volume (2C MOD) 121 ml LV EF (2C MOD) 68 % LV Diastolic Volume (BP MOD) 112 ml 62-150 LV Diastolic Volume Index (BP MOD) 56 ml/m2 34-74 LV Systolic Volume (BP MOD) 39 ml 21-61 LV Systolic Volume Index (BP MOD) 19 ml/m2 11-31 LV EF (BP MOD) 66 % 52-72 LV Diastolic Length (4C) 7.6 cm LV Systolic Length (4C) 6.5 cm LV Stroke Volume (4C MOD) 58 ml Atria Name Value Normal LA Dimensions LA Volume (4C A-L) 75 ml LA Volume (BP A-L) 70 ml RA Dimensions RA Systolic Major Colona Length (4C) 6.8 cm 2.1-2.7 RA Area (4C) 25.4 cm2 <=18.0 Report Signatures
== END 2025-01-28 08:32 | disposition home or self-care (01) ==
PROVIDERS: PCP Internal Medicine; Visit Provider Internal Medicine Cardiovascular Disease
DX: I08.3 Combined rheumatic disorders of mitral, aortic and tricuspid valves (principal)
CPT/HCPCS: 93306